=== PATIENT | male | born 1965 | race Two or more races ===

== ENCOUNTER 2024-08-30 21:35 | Emergency (ER) | payer MEDICAID, SELFPAY ==
[2024-08-30 21:36] VITALS: BMI 30.5
[2024-08-30 22:39] VITALS: BP 143/85; PULSE 71; RESP 18; TEMP 37; O2SAT 94
--- NOTE | 2024-08-30 23:20 | XR_ITS ---
Examination: Foot, left, 3 views Technique: AP, oblique, lateral views foot, 3 views Date and time of exam: August 30, 2024 11:20 PM Indications: Onset left flank pain today. Findings: Prominent osteopenia Acute fractures distal phalanx first digit with no significant displacement No dislocation Impression: Acute fractures distal phalanx first digit
--- NOTE | 2024-08-30 23:21 | EDNOTE_ITS ---
Lower Extremity Injury RME/HPI General Chief Complaint: Ankle/Foot Injury Stated Complaint: SMASHED LEFT 1ST AND 2ND TOE Time Seen by Provider: 08/30/24 22:01 Arrival date/time: 08/30/24 21:35 58-year-old male reports with complaints of pain bruising and swelling of the left great toe. Patient states that he dropped an object on the foot he noticed immediate bruising and swelling and pressure. Patient denies any numbness or tingling but states that it is difficult to bend the toe because of the swelling. He has not taken any medications for pain Limitations: no limitations Related Data Previous Rx's ?Medication ?Instructions ?Recorded cephalexin 500 mg capsule 500 mg PO BID 7 days #14 cap s 08/31/24 hydrocodone 5 mg-acetaminophen 325 1 tab PO Q12H PRN p ain #15 tabs 08/31/24 mg tablet Allergies Allergy/AdvReac Type Severity Reaction Status Date / Time NKA* Allergy Uncoded 08/30/24 21:38 Review of Systems Constitutional Constitutional: Denies chills and Denies fever(s) Musculoskeletal Musculoskeletal: Reports arthralgias, Reports joint swelling, Denies numbness and Denies tingling Integumentary/Breasts Skin/Breast: Reports unusual bruising and Denies wounds Neurologic Neurologic: Denies numbness and Denies tingling Hematologic/Lymphatic Hematologic/Lymphatic: Denies easy bleeding and Denies easy bruising ED Exam General Limitations: Present no limitations General appearance: Present alert and in no apparent distress Extremities Exam Extremities exam: Present other (left great toe with diffuse ecchymosis, ttp, decreased ROM of the DIP secondary to pain and swelling, unable to visualize capillary refill as patient has hard nails but pedal pulses 2+ reflexes in) Neurological Exam Neurological exam: Present alert, oriented X3 and CN II-XII intact Psychiatric Psychiatric exam: Present normal affect and normal mood Skin Skin exam: Present warm, dry, intact and normal color Course Course Course Narrative: 58-year-old male reports with complaints of bruising swelling and pain of left great toe. X-ray shows fracture of the left great toe. The patient also has a large hematoma and complaint of severe pressure of the toe I anesthetized via digital block with 5 cc of 1% lidocaine no epi I placed 3 small incisions just of the dermis medial aspect of the foot and 2 in the volar to relieve pressure. Patient will be discharged home with a loose dressing, pain medications, antibiotics prophylactically and advised to follow-up with primary care provider in 48 hours. Patient is also advised to limit weightbearing activities he will be given a postop shoe Quality Measures none Orders Category Date Time Status Wound Care NOW Care 08/31/24 02:09 Active immobilizer [Splint / Immobilizer] STAT Care 08/31/24 02:09 Active XR foot comp LT min 3V Stat Exams 08/30/24 23:20 Completed Ketorolac Inj [Toradol Inj] Med 08/30/24 23:20 Discontinued 30 mg IM X1 ONE Lidocaine/Prilocaine Cr 5Gm [Emla Cr] Med 08/31/24 00:47 Discontinued See Dose Instructions TOP X1 ONE Vital Signs Vital signs: Vital Signs Temperature 98.6 F 08/30/24 22:39 Pulse Rate 71 08/30/24 22:39 Respiratory Rate 18 08/30/24 22:39 Blood Pressure 143/85 H 08/30/24 22:39 Pulse Oximetry (%) 94 L 08/30/24 22:39 Oxygen Delivery Method Room Air 08/30/24 22:39 Extremity Injury, Lower Patient data External records reviewed:: None Clinical information provided by:: patient Social determinants that could affect healthcare access:: none Patient has the following chronic illnesses:: none How is presenting disease/condition affected by chronic disease/condition?: no chronic disease Evaluation data The following diagnostics were reviewed and interpreted by me:: radiology exam(s) Lab and/or radiology exams considered but not ordered:: none Interpretation Summary: left great toe fracture Medications / Prescriptions Medications or Prescriptions considered but not ordered:: none Medication administrations:: Medication Administration History Discontinued Medications Ketorolac Tromethamine (Ketorolac Inj 60 Mg/2 Ml Vial) 30 mg IM X1 ONE Stop: 08/30/24 23:21 Last Admin: 08/30/24 23:43 Dose: 30 mg Documented By: KARSON Lidocaine/Prilocaine (Lidocaine/Prilocaine Cr 5gm 5 Gm Tube) 0 gm TOP X1 ONE Stop: 08/31/24 00:48 Last Admin: 08/31/24 00:50 Dose: 5 gm Documented By: KARSON none Consultations Consultation(s) initiated? (list below): No Diagnosis Most likely diagnosis given after review of the tests above:: left great toe fracture Admission Indicated Admission indicated?: not indicated Admission Request Was there a request for admission?: No Disposition Plan Disposition Plan: Discharge Discharge Attestation Discharge Attestation: The patient and all family members were given an opportunity to ask questions and understood the discharge instructions. Discharge instructions specifically effects, indications for sooner follow up or return to the emergency department, and the expected course of current diagnosis. Patient condition: Stable Discharge Plan Plan Patient Disposition: HOME (Self Care) Prescriptions/Referrals Prescriptions/Med Rec: New hydrocodone-acetaminophen 5-325 mg tablet 1 tab PO Q12H MDD 4 g APAP PRN (Reason: pain) Qty: 15 0RF cephalexin 500 mg capsule 500 mg PO BID 7 Days Qty: 14 0RF Referrals: Hailey Seaman NP [Primary Care Provider] - In 1 week Problem List Clinical Impression: Closed fracture of left great toe Patient/Caregiver Discharge Instructions Education Materials: ED Fracture, Toe, Closed Additional Instructions: Take medication as directed and follow with your primary care provider on Sunday Print Language: Chadian Stand Alone Forms: Evelyn Award Info., Patient Portal Info Letter
[2024-08-30] MEDS: KETOROLAC INJ 60 MG/2 ML VIAL 30 MG IM (23:43)
[2024-08-31] MEDS: LIDOCAINE/PRILOCAINE CR 5GM 5 GM TUBE TOP (00:50)
--- NOTE | 2024-08-31 02:23 | PC.NURSE ---
Post op shoe to the left foot
== END 2024-08-31 02:36 | disposition home or self-care (01) ==
PROVIDERS: Emergency Provider Emergency Medicine; PCP Nurse Practitioner Family
DX: S92.425A Nondisplaced fracture of distal phalanx of left great toe, initial encounter for closed fracture (principal); W20.8XXA Other cause of strike by thrown, projected or falling object, initial encounter
CPT/HCPCS: 10140; 73630; 96372; 99283; J1885

== ENCOUNTER → 2024-10-16 | Outpatient (CLI) | payer MEDICAID, SELFPAY ==
--- NOTE | 2024-10-16 10:11 | XR_ITS ---
Examination: Foot, left, 3 views Technique: AP, oblique, lateral views foot, 3 views Date and time of exam: October 16, 2024 1034 hours INDICATIONS: History acute fracture distal phalanx first digit August 30, 2024 FINDINGS: Early healing comminuted fractures distal phalanx first digit with stable and satisfactory alignment Bunion deformity IMPRESSION: Early healing comminuted fractures distal phalanx first digit with stable and satisfactory alignment
== END | disposition home or self-care (01) ==
PROVIDERS: Referring Provider Podiatrist; Visit Provider Podiatrist
DX: S92.422D Displaced fracture of distal phalanx of left great toe, subsequent encounter for fracture with routine healing (principal); X58.XXXD Exposure to other specified factors, subsequent encounter
CPT/HCPCS: 73630

== ENCOUNTER → 2024-11-21 | Outpatient (CLI) | payer MEDICAID, SELFPAY ==
--- NOTE | 2024-11-21 | XR_ITS ---
Examination: Foot, left, 3 views Technique: AP, oblique, lateral views foot, 3 views Date and time of exam: November 21, 2024 0803 hours Comparison October 16, 2024 INDICATIONS: History fractures distal phalanx first digit FINDINGS: Further healing fractures distal phalanx first digit with stable and satisfactory alignment IMPRESSION: Further healing fractures distal phalanx first digit with stable and satisfactory alignment 11/21/2024
== END | disposition home or self-care (01) ==
LOC: CDIM 07:47
PROVIDERS: PCP Podiatrist; Referring Provider Podiatrist; Visit Provider Podiatrist
DX: S92.422A Displaced fracture of distal phalanx of left great toe, initial encounter for closed fracture (principal); X58.XXXA Exposure to other specified factors, initial encounter
CPT/HCPCS: 73630